=== PATIENT | male | born 1980 | race Caucasian/White ===

== ENCOUNTER → 2020-07-04 12:45 | Outpatient (CLI) | payer OTHER, SELFPAY | DX: K82.4 Cholesterolosis of gallbladder (principal); Z53.9 Procedure and treatment not carried out, unspecified reason ==

== ENCOUNTER → 2020-07-12 11:53 | Outpatient (CLI) | payer OTHER, SELFPAY | PROVIDERS: Referring Provider Acupuncturist; Visit Provider Acupuncturist | DX: K82.4 Cholesterolosis of gallbladder (principal); Z53.8 Procedure and treatment not carried out for other reasons ==

== ENCOUNTER → 2020-08-19 12:08 | Outpatient (CLI) | payer OTHER, SELFPAY ==
--- NOTE | 2020-08-19 12:12 | DI.US.S_ITS ---
PROCEDURE: US ABDOMEN LIMITED INDICATIONS: CHOLOESTEROLOSIS TECHNIQUE: Real-time focused scanning was performed of the abdomen, with image documentation. COMPARISON: None. FINDINGS: Limited study at clinician request targeted to the gallbladder in this patient with a prior report open (but without prior images available for review close) stating presence of 5 mm gallbladder polyp. The current examination shows normal echotexture of the liver and normal liver size. The gallbladder is well visualized and shows minimal cholesterolosis but no evidence of gallbladder polyp. Gallbladder wall thickness is 1.2 mm. IMPRESSION: No gallbladder polyp is present, the gallbladder was very well visualized.. Minimal cholesterolosis noted at the gallbladder mucosal surface. Dictated by: Bryan Chang M.D. on 08/19/2020 at 17:34 Approved by: Bryan Chang M.D. on 08/19/2020 at 17:37
== END ==
PROVIDERS: Referring Provider Acupuncturist; Visit Provider Acupuncturist
DX: K82.4 Cholesterolosis of gallbladder (principal)
CPT/HCPCS: 76705